=== PATIENT | female | born 1970 | race Caucasian/White ===

== ENCOUNTER 2018-08-30 11:02 | Emergency (ER) | payer BC ==
--- NOTE | 2018-08-30 13:02 | UC ---
Psychiatric Complaint HPI - HPI Summary HPI Summary: Patient has history of anxiety previously treated with Lamictal. States she has been off this medication for over 2 years. Recently she has experienced increased stress due to family health issues. Is visiting here from [place]. Has Ativan that she uses sparingly and intermittently for her acute anxiety symptoms but is wondering about being started back on Lamictal. Is scheduled to return to [place] in 2 weeks. Also is complaining of 2 months of low level lower abdominal discomfort and urinary frequency/urgency. No dysuria. Is requesting a urine test. - History Of Current Complaint Chief Complaint: [facility] Stated Complaint: ANXIETY Time Seen by Provider: 08/30/18 12:44 Hx Obtained From: Patient Hx Last Menstrual Period: 08/16/18 Onset/Duration: Gradual Onset, Lasting Weeks, Still Present Severity Initially: Moderate Severity Currently: Moderate Character: Anxious Aggravating Factor(s): Recent Stress Alleviating Factor(s): Medication - ATIVAN Associated Signs And Symptoms: Negative Related History: Positive For: Prior Psychiatric Issues - Allergies/Home Medications Allergies/Adverse Reactions: Allergies Allergy/AdvReac Type Severity Reaction Status Date / Time prednisone Allergy Hallucinati Verified 08/30/18 11:23 ons Sulfa (Sulfonamide Allergy Headache Verified 08/30/18 11:23 Antibiotics) Home Medications: Home Medications NK [No Home Medications Reported] 08/30/18 [History Confirmed 08/30/18] PMH/Surg Hx/FS Hx/Imm Hx Psychological History: Anxiety - Surgical History Surgical History: None - Family History Known Family History: Positive: Non-Contributory - Social History Alcohol Use: Occasionally Substance Use Type: Marijuana Smoking Status (MU): Never Smoked Tobacco Review of Systems All Other Systems Reviewed And Are Negative: Yes Constitutional: Positive: Negative Skin: Positive: Negative Respiratory: Positive: Negative Cardiovascular: Positive: Negative Gastrointestinal: Positive: Negative Genitourinary: Positive: Frequency, Urgency. Negative: Dysuria, Hematuria Psychological: Positive: Anxious Physical Exam Triage Information Reviewed: Yes Appearance: Well-Appearing, No Pain Distress, Well-Nourished Vital Signs: Initial Vital Signs Temp 98.9 F 08/30/18 11:17 Pulse 98 08/30/18 11:17 Resp 18 08/30/18 11:17 BP 149/89 08/30/18 11:17 Pulse Ox 100 12/28/18 11:17 Laboratory Tests 08/30/18 13:12 POC Urine Color Light yellow POC Urine Clarity Clear POC Urine pH 7.0 POC Ur Specif [place] <= 1.005 L POC Urine Protein Negative POC Ur Glucose (UA) Negative POC Urine Ketones Negative POC Urine Blood Trace-lysed A POC Urine Nitrite Negative POC Urine Bilirubin Negative POC Urine Urobilinogen 0.2 POC U Leukocyte Esteras 1+ A Vital Signs Reviewed: Yes Eyes: Positive: Conjunctiva Clear ENT: Positive: Hearing grossly normal Neck: Positive: Supple Respiratory: Positive: No respiratory distress, No accessory muscle use Cardiovascular: Positive: Pulses Normal Abdomen Description: Positive: Soft. Negative: CVA Tenderness (R), CVA Tenderness (L), Distended, Guarding Musculoskeletal: Positive: No Edema Neurological: Positive: Alert Psychological: Positive: Age Appropriate Behavior, Other: - PT IS APPROPRIATELY INTERACTIVE. APPEARS WELL GROOMED AND MAKES GOOD EYE CONTACT. HAS GOOD INSIGHT INTO HER CONDITION. Skin: Negative: Rashes Psych Complaint Course/Dx - Course Course Of Treatment: PATIENT HAS BEEN USING ATIVAN SPARINGLY WITH GOOD EFFECT TO HELP WITH HER ANXIETY SYMPTOMS. SHE STATES SHE DOES NOT WANT USES LONG-TERM AND WANTS TO BE BACK ON LAMICTAL. STATES SHE WAS ON THIS ABOUT 2 YEARS AGO FOR HER ANXIETY WITH GOOD EFFECT. SHE RETURNS HOME TO [place] IN ABOUT 2 WEEKS. I ADVISED HER TO FOLLOW-UP WITH HER PROVIDER BACK HOME FOR THIS PRESCRIPTION FOR SAFETY REASONS I DO NOT FEEL COMFORTABLE STARTING HER ON THIS MEDICATION HERE WITHOUT FOLLOW-UP. I HAVE ALSO REFERRED HER TO [facility] AND TO [facility] FOR EVALUATION PRIOR TO DEPARTURE. ADVISED THAT SHE GO DIRECTLY TO THE ED IF HER SYMPTOMS BECOME UNMANAGEABLE. PT HAS SMALL AMOUNT BACTERIA AND TRACE BLOOD IN URINE. NOT A CLEAR UTI. WILL SEND FOR CX AND NOTIFY HER IF SHE NEEDS TX. ADVISED PT TO HAVE REPEAT URINE TEST DONE WHEN SHE GETS HOME TO ENSURE BLOOD HAS CLEARED. - Differential Dx/Diagnosis Provider Diagnosis: Anxiety, Urinary frequency Discharge - Sign-Out/Discharge Documenting (check all that apply): Patient Departure All imaging exams completed and their final reports reviewed: No Studies - Discharge Plan Condition: Stable Disposition: HOME Patient Education Materials: Hematuria (ED) Referrals: [facility] [Outside] - As Soon As Possible Additional Instructions: CALL [facility] TO SCHEDULE AN APPT FOR EVALUATION. GO DIRECTLY TO THE [facility] ED WITHOUT FAIL IF YOU ARE UNABLE TO COPE. [facility] Address: [place] [address] WE HAVE SENT YOUR URINE FOR CULTURE. WE WILL CALL YOU IF IT GROWS ANYTHING THAT REQUIRES TREATMENT. YOU MUST FOLLOW-UP WITH YOUR PCP BACK HOME IN [place] WHEN YOU RETURN FOR A REPEAT URINE TEST TO ENSURE THE BLOOD HAS CLEARED. - Billing Disposition and Condition Condition: STABLE Disposition: Home
== END 2018-08-30 13:36 | disposition home or self-care (01) ==
LOC: UCEAST 11:02
DX: F41.9 Anxiety disorder, unspecified (principal); R35.0 Frequency of micturition; Z88.2 Allergy status to sulfonamides; Z88.8 Allergy status to other drugs, medicaments and biological substances
CPT/HCPCS: 81003; 87086; 99201; G0463